=== PATIENT | male | born 1985 | race Caucasian/White ===

== ENCOUNTER 2017-08-02 10:13 | Inpatient (IN) | payer MEDICAID, OTHER ==
[~2017-08-02] VITALS: Ht 188 cm; Wt 62.4 kg
[2017-08-02 11:20] LABS: BASOPHILS % (AUTO) 0.8 % (0.0-2.0); EOSINOPHILS % (AUTO) 1.5 % (1.0-6.0); HEMATOCRIT 41.4 % (41-53); HEMOGLOBIN 14.2 g/dL (13.5-17.5); LYMPHOCYTES # (AUTO) 0.8 K/uL (1.0-4.8); LYMPHOCYTES % (AUTO) 37.7 % (22.0-44.0); MEAN CORPUSCULAR HGB CONC 34.4 G/dL (31.0-37.0); MEAN CORPUSCULAR VOLUME 99 fL (80-100); MONOCYTES # (AUTO) 0.1 K/uL (0.1-1.0); MONOCYTES % (AUTO) 6.9 % (2.0-9.0); NEUTROPHILS # (AUTO) 1.2 K/uL (1.8-7.7); NEUTROPHILS % (AUTO) 53.1 % (40.0-70.0); PLATELET COUNT (AUTO) 112 K/uL (150-450); RED BLOOD CELL COUNT(AUTO) 4.19 MIL/uL (4.50-5.90); RED CELL DISTRIBUTION WIDTH 14.3 % (11.5-14.5)
[2017-08-02 11:31] LABS: ANION GAP 12 mmol/L (8-16); CALCIUM, TOTAL 8.4 mg/dL (8.8-10.5); CARBON DIOXIDE 28 mmol/L (22-29); CHLORIDE 103 mmol/L (98-107); CREATININE 0.66 mg/dL (0.60-1.30); GLOMERULAR FILTR. RATE CALC > 60 mL/min (>60); GLUCOSE,RANDOM 91 mg/dL (70-110); POTASSIUM 3.9 mmol/L (3.5-5.1); SODIUM SERUM 143 mmol/L (136-145); UREA NITROGEN, BLOOD 8 mg/dL (7-18)
[2017-08-02 11:36] LABS: ALANINE AMINOTRANSFERASE 111 U/L (12-78); ALBUMIN 4.3 g/dL (3.4-5.0); ALKALINE PHOSPHATASE 67 U/L (46-116); ASPARTATE AMINOTRANSFERASE 106 U/L (15-37); BILIRUBIN,TOTAL 0.3 mg/dL (0.1-1.0); TOTAL PROTEIN, SERUM 7.2 g/dL (6.4-8.2)
[2017-08-02] MEDS ORDERED: HALOPERIDOL 5 MG TABLET PO PRN (12:15)
[2017-08-02] MEDS ORDERED: SODIUM CHLORIDE 0.9% 1,000 ML IV ONE (12:30)
[2017-08-02] MEDS ORDERED: MAGNESIUM SULFATE 2 GM, MVI, ADULT NO.1 WITH VIT K 10 ML, THIAMINE HCL 100 MG, FOLIC AC... IV ONE ×5 (12:30)
[2017-08-02] MEDS ORDERED: ChlordiazePOXIDE HCL 25 MG CAPSULE PO ONE (12:30)
[2017-08-02 12:48] LABS: CHOLESTEROL 226 mg/dL (131-200); FREE T4 (FREE THYROXINE) 0.64 ng/dL (0.76-1.46); THYROID STIMULATING HORMONE 2.25 uIU/mL (0.36-3.74); TRIGLYCERIDES 39 mg/dL (15-150)
[2017-08-02 13:12] LABS: CHOL/HDL RATIO 1.3 (4.2-7.3); HDL CHOLESTEROL 170 mg/dL (40-60); LDL CHOL (CALC.) 48 mg/dL (0-130)
[2017-08-02] MEDS ORDERED: DIAZEPAM 5 MG/ML 2 ML SYRINGE IVP ONE (15:00)
[2017-08-02] MEDS: ZOLPIDEM TARTRATE 10 MG TABLET PO PRN ×2 (20:11→23:50)
[2017-08-02] MEDS: LORazepam 2 MG TABLET PO PRN ×2 (20:11→23:50)
[2017-08-03] VITALS (9 sets, daily range): BP systolic 120–143; BP diastolic 65–87
[2017-08-03] MEDS: LORazepam 2 MG TABLET PO PRN ×4 (04:04→20:32)
[2017-08-03] MEDS ORDERED: GuaiFENesin/D-METHORPHAN [SUGAR-FREE] 200-20MG/10 ML SYRUP UDCUP PO PRN (11:00)
[2017-08-03] MEDS ORDERED: CYANOCOBALAMIN 1,000 MCG/ML VIAL IM ONE (11:00)
[2017-08-03] MEDS ORDERED: LOPERAMIDE HCL 2 MG CAPSULE PO PRN (11:00)
[2017-08-03] MEDS ORDERED: HydrOXYzine PAMOATE 50 MG CAPSULE PO PRN (11:00)
[2017-08-03] MEDS ORDERED: CloNIDine HCL 0.1 MG TABLET PO PRN (14:30)
[2017-08-03] MEDS: THIAMINE HCL 100 MG TABLET PO SCH (16:28)
[2017-08-03] MEDS ORDERED: INFLUENZA VIRUS VACCINE QVS 2017-18 (3YR+)/PF 60 MCG/0.5 ML SYRINGE IM ONE (17:00)
[2017-08-04 02:00] VITALS: BP 131/81
[2017-08-04 06:00] VITALS: BP 138/81
[2017-08-04] MEDS ORDERED: LORazepam 2 MG TABLET PO PRN (07:00)
[2017-08-04 08:34] VITALS: BP 124/76
[2017-08-04] MEDS: LORazepam 2 MG TABLET PO SCH ×4 (08:48→21:00)
[2017-08-04] MEDS: FOLIC ACID 1 MG TABLET PO SCH (08:48)
[2017-08-04] MEDS: MULTIVITAMINS WITH MINERALS, THERAPEUTIC TABLET PO SCH (08:48)
[2017-08-04] MEDS: THIAMINE HCL 100 MG TABLET PO SCH ×2 (08:49→16:54)
[2017-08-04] MEDS ORDERED: OLANZapine 5 MG RAPDIS TABLET PO SCH (11:45)
[2017-08-04] MEDS: NICOTINE 21 MG/24 HOUR PATCH TD SCH (12:51)
[2017-08-04] MEDS ORDERED: ACETAMINOPHEN 325 MG TABLET PO PRN (16:15)
[2017-08-04] MEDS ORDERED: IBUPROFEN 400 MG TABLET PO PRN (16:15)
[2017-08-04 16:20] VITALS: BP 137/89
[2017-08-05] VITALS: BP_SYST 116; BP_SYST 132; BP_DIAS 78; BP_DIAS 90
[2017-08-05 01:37] VITALS: BP 126/76
[2017-08-05 08:00] VITALS: BP 116/84
[2017-08-05] MEDS: NICOTINE 21 MG/24 HOUR PATCH TD SCH (08:09)
[2017-08-05] MEDS: THIAMINE HCL 100 MG TABLET PO SCH (08:10)
[2017-08-05] MEDS: MULTIVITAMINS WITH MINERALS, THERAPEUTIC TABLET PO SCH (08:10)
[2017-08-05] MEDS: LORazepam 2 MG TABLET PO SCH ×2 (08:10→12:14)
[2017-08-05] MEDS: FOLIC ACID 1 MG TABLET PO SCH (08:10)
[2017-08-05 08:47] VITALS: BP 116/84
[2017-08-05] MEDS ORDERED: FOLIC ACID 1 MG TABLET PO SCH (09:00)
[2017-08-05] MEDS ORDERED: OMEPRAZOLE 20 MG CAPSULE PO SCH (09:00)
[2017-08-05] MEDS ORDERED: OMEP20 PO (15:14)
[2017-08-05 16:49] VITALS: BP 121/74
[2017-08-05 16:50] VITALS: BP 121/74
[2017-08-06] MEDS ORDERED: LORazepam 1 MG TABLET PO PRN (07:00)
[2017-08-06] MEDS ORDERED: LORazepam 1 MG TABLET PO SCH (09:00)
[2017-08-07] MEDS ORDERED: LORazepam 1 MG TABLET PO PRN (07:00)
== END 2017-08-05 17:30 | disposition home or self-care (01) | DRG 751 ==
LOC: EMS 10:15 → AHU 08-03 08:53 → B2S 08-03 11:45
DX: F29 Unspecified psychosis not due to a substance or known physiological condition (principal); D69.6 Thrombocytopenia, unspecified; R56.9 Unspecified convulsions; F10.239 Alcohol dependence with withdrawal, unspecified; F10.229 Alcohol dependence with intoxication, unspecified; D72.819 Decreased white blood cell count, unspecified; F17.200 Nicotine dependence, unspecified, uncomplicated; F22 Delusional disorders; F41.9 Anxiety disorder, unspecified; F12.90 Cannabis use, unspecified, uncomplicated; K21.9 Gastro-esophageal reflux disease without esophagitis; Z87.11 Personal history of peptic ulcer disease; Z71.51 Drug abuse counseling and surveillance of drug abuser
CPT/HCPCS: 80074; 84439; 84443; G0480; J3411; J3420; J3475; J3490; J7030